=== PATIENT | male | born 1995 | race Caucasian/White ===

== ENCOUNTER 2020-05-23 15:25 | Emergency (ER) | payer OTHER ==
[2020-05-23] MEDS ORDERED: IBUPROFEN 800 MG TABLET PO STA (15:39)
--- NOTE | 2020-05-23 15:39 | ED Physician Documentation ---
PD HPI HEENT - Stated complaint Stated Complaint: SWOLLEN THROAT, FEVER - History obtained from History obtained from: Patient - Additional information Additional information: Otherwise healthy 25-year-old gentleman who is active duty in the [employer] has had a sore throat since yesterday with a sensation of throat swelling and fevers. No significant cough or runny nose. He was tested for Covid a few days ago and it was negative. Review of Systems Ten Systems: 10 systems reviewed and negative Constitutional: reports: Fever, Chills Ears: reports: Reviewed and negative Nose: reports: Reviewed and negative PD PAST MEDICAL HISTORY - Present Medications Home Medications: Ambulatory Orders Medication Instructions Recorded Confirmed predniSONE [Deltasone] 20 mg PO [id number] #21 tab 05/23/20 - Allergies Allergies/Adverse Reactions: Allergies Allergy/AdvReac Type Severity Reaction Status Date / Time No Known Drug Allergies Allergy Verified 05/23/20 15:46 PD ED PE NORMAL - Vitals Vital signs reviewed: Yes - General General: Alert and oriented X 3, No acute distress - HEENT HEENT: Other (He has significant exudative tonsillitis, but not kissing tonsillitis per se. He has moderate anterior cervical adenopathy. No trismus.) - Neck Neck: Supple, no meningeal sign - Derm Derm: No rash - Neuro Neuro: Alert and oriented X 3, Normal speech Results - Vitals Vitals: Vital Signs - 24 hr 05/23/20 05/23/20 15:35 15:46 Temperature 38.7 C H Heart Rate 122 H 111 H Respiratory 16 20 Rate Blood Pressure 134/86 H 121/76 O2 Saturation 96 95 Oxygen O2 Source Room air - Labs Labs: Laboratory Tests 05/23/20 15:40 Group A Strep Rapid Negative PD MEDICAL DECISION MAKING - ED course ED course: 25-year-old gentleman presents with exudative tonsillitis and fever. His rapid strep is somewhat surprisingly negative. Discussed with him that we would culture his throat. He would like antibiotics in the interim. Discussed with him that is not standard of care And we would call if the culture is positive. Offered mono testing which he declined. Departure - Departure Disposition: 01 Home, Self Care Clinical Impression: Pharyngitis Qualifiers: Pharyngitis/tonsillitis etiology: unspecified etiology Qualified Code(s): J02.9 - Acute pharyngitis, unspecified Condition: Good Record reviewed to determine appropriate education?: Yes Instructions: ED Pharyngitis Viral Report Pending Prescriptions: predniSONE [Deltasone] 20 mg PO [id number] #21 tab Comments: As discussed, your strep test is positive we will call you, that takes a day or 2. Return if worsening. [place] Forms: Activity restrictions
[2020-05-23 16:02] LABS: RAPID STREP SCREEN Negative (Negative)
[2020-05-23 16:31] VITALS: BP 117/75
== END 2020-05-23 16:37 | disposition home or self-care (01) ==
LOC: EDBD → ED 15:25
DX: J03.90 Acute tonsillitis, unspecified (principal)
CPT/HCPCS: 87070; 87430; 99283; A9270